=== PATIENT | male | born 1955 | race Hispanic/Latino ===

== ENCOUNTER 2021-10-06 09:51 | Outpatient (CLI) | payer MEDICARE | END 2021-10-06 09:52 | disposition home or self-care (01) | LOC: BURRAD 09:51 | PROVIDERS: ATTEND Nurse Practitioner Family | DX: R22.1 Localized swelling, mass and lump, neck (principal); M47.812 Spondylosis without myelopathy or radiculopathy, cervical region | CPT/HCPCS: 70360 ==